=== PATIENT | female | born 1945 | race Caucasian/White ===

== ENCOUNTER 2016-12-11 19:58 | Inpatient (IN) | payer SELFPAY ==
[~2016-12-11] VITALS: Ht 162.6 cm; Wt 48.1 kg
[~2016-12-11 19:58] MED LIST: CALCIUM CHLORIDE 10%, 10ML SYR ONE; EPINEPHRINE SYRINGE 0.1 MG/ML, 10ML ONE
[2016-12-11] MEDS ORDERED: PLEASE ENTER HEIGHT AND WEIGHT MC SCH (21:30)
[2016-12-11] MEDS ORDERED: SODIUM CHLORIDE 0.9% 1,000ML IVBOLUS ONE ×3 (21:30→22:30)
[2016-12-11] MEDS ORDERED: PLEASE ENTER ALLERGIES MC SCH ×2 (21:30)
[2016-12-11 22:01] LABS: ASPARTATE AMINO TRANSFERASE 411 U/L (15-37); BLOOD UREA NITROGEN 94 mg/dL (7-18)
[2016-12-11] MEDS ORDERED: PIPERACILLIN/TAZO/PMX 3.375GM 50 ML ONE (22:16)
[2016-12-11 22:17] LABS: IS PT STATUS REG ER OR PRE ER? YES
[2016-12-11] MEDS ORDERED: VANCOMYCIN PER PHARMACY IV ONE (22:30)
[2016-12-11] MEDS ORDERED: VANCOMYCIN PMX 1GM/200ML 200 ML IV ONE (22:30)
[2016-12-11] MEDS ORDERED: PIPERACILLIN/TAZO/PMX 3.375GM 50 ML IVPB ONE (22:30)
[2016-12-11 22:38] LABS: HEMOGLOBIN 6.8 g/dL (11.7-16.4)
[2016-12-11 22:55] LABS: DIFF TOTAL CELLS COUNTED 100 CELL DIFF
[2016-12-11 22:58] LABS: HYPOCHROMIA 2+; LARGE PLATELETS 1+; MICROCYTOSIS 2+; OVALOCYTES 1+; POLYCHROMASIA 1+; TARGET CELLS 1+
[2016-12-11 22:59] LABS: VERIFY COUNTS? YES
[2016-12-12] VITALS (8 sets, daily range): BP systolic 74–103; BP diastolic 22–55
[2016-12-12 00:14] LABS: ICTOTEST NEGATIVE
[2016-12-12] MEDS ORDERED: PANTOPRAZOLE 80 MG in SODIUM CHLORIDE 0.9% 50 ML IV ONE (01:00)
[2016-12-12] MEDS ORDERED: SODIUM CHLORIDE 0.9% 1,000 ML IV ONE (01:03)
[2016-12-12] MEDS ORDERED: ONDANSETRON 2MG/ML, 2ML IVPush PRN (01:30)
[2016-12-12] MEDS: SODIUM CHLORIDE 0.9% 1,000 ML IV SCH ×3 (01:46→10:10)
[2016-12-12] MEDS ORDERED: ONDANSETRON 2MG/ML, 2ML IVP PRN (02:00)
[2016-12-12] MEDS ORDERED: BISACODYL 10 MG SUPP PR PRN (02:00)
[2016-12-12] MEDS ORDERED: DOCUSATE 100 MG CAPSULE PO PRN (02:00)
[2016-12-12] MEDS ORDERED: POLYETHYLENE GLYCOL 17 GM PACKET PO PRN (02:00)
[2016-12-12] MEDS ORDERED: LABETALOL 5MG/ML, 20ML IV PRN (02:00)
[2016-12-12] MEDS: PIPERACILLIN/TAZO/PMX 3.375GM 50 ML IV SCH ×3 (04:54→16:30)
[2016-12-12] MEDS: HEPARIN 5,000 UNITS/ML, 1ML SQ SCH ×3 (04:54→18:00)
[2016-12-12 04:57] LABS: IS PT STATUS REG ER OR PRE ER? NO
[2016-12-12] MEDS ORDERED: PANTOPRAZOLE 40 MG IV IVP SCH (07:30)
[2016-12-12] MEDS ORDERED: NOREPINEPHRINE 1 MG/ML, 4ML ONE (07:32)
[2016-12-12] MEDS ORDERED: LEVETIRACETAM 500 MG in SODIUM CHLORIDE 0.9% 100 ML IV SCH (08:00)
[2016-12-12] MEDS ORDERED: VANCOMYCIN PER PHARMACY MC PRN (08:00)
[2016-12-12] MEDS ORDERED: MIDAZOLAM HCL 25 MG in SODIUM CHLORIDE 0.9% 245 ML IV PRN (08:00)
[2016-12-12] MEDS ORDERED: NOREPINEPHRINE 4 MG in SODIUM CHLORIDE 0.9% 246 ML IV PRN (08:00)
[2016-12-12] MEDS ORDERED: LIDOCAINE-MPF 1%, 2ML ENDO PRN (09:00)
[2016-12-12] MEDS ORDERED: PHARMACOKINETIC MONITORING MC PRN (09:00)
[2016-12-12] MEDS ORDERED: PHARMACOKINETIC CONSULTATION MC ONE (09:00)
[2016-12-12] MEDS ORDERED: PROPOFOL 10 MG/ML, 20ML ONE (09:00)
[2016-12-12] MEDS ORDERED: ETOMIDATE 40 MG/20 ML ONE (09:00)
[2016-12-12] MEDS ORDERED: VASOPRESSIN 100 UNIT in SODIUM CHLORIDE 0.9% 495 ML IV PRN (09:00)
[2016-12-12] MEDS ORDERED: ACETAMINOPHEN 650 MG/20.3 ML UDC NG PRN (09:00)
[2016-12-12] MEDS ORDERED: PHARMACY MAY ADJ FOR RENAL FX MC SCH (09:00)
[2016-12-12 09:55] LABS: ABG COLLECTION SITE ARTERIAL LINE
[2016-12-12 10:22] LABS: BLOOD UREA NITROGEN 81 mg/dL (7-18)
[2016-12-12] MEDS: ALBUTEROL/IPRATROPIUM 2.5MG/0.5MG, 3 ML INLINE SCH ×3 (11:15→19:20)
[2016-12-12 11:33] LABS: HEMOGLOBIN 8.4 g/dL (11.7-16.4)
[2016-12-12 12:17] LABS: VERIFY COUNTS? YES
[2016-12-12 12:18] LABS: ANISOCYTOSIS 1+; HYPOCHROMIA 1+; MICROCYTOSIS 1+; OVALOCYTES 1+; POIKILOCYTOSIS 1+; POLYCHROMASIA 1+; SCHISTOCYTES 1+; SPHEROCYTES 1+; TARGET CELLS 1+
[2016-12-12 12:19] LABS: ECHINOCYTES 1+
[2016-12-12 12:21] LABS: LARGE PLATELETS 1+
[2016-12-12 12:23] LABS: DIFF TOTAL CELLS COUNTED 200 CELL DIFF
[2016-12-12 12:24] LABS: MONOS WITH VACUOLES 1+
[2016-12-12] MEDS ORDERED: DEXTROSE 50%, 50ML SYRINGE ONE (16:09)
[2016-12-12] MEDS ORDERED: DEXTROSE 50%, 50ML SYRINGE IVPush ONE (16:15)
[2016-12-12] MEDS ORDERED: DEXTROSE 10% 1,000 ML IV SCH (16:30)
[2016-12-12 16:40] LABS: BLOOD UREA NITROGEN 82 mg/dL (7-18)
[2016-12-12] MEDS: DEXTROSE 50%, 50ML SYRINGE IVPush PRN ×3 (16:45→18:50)
[2016-12-12] MEDS ORDERED: LACTULOSE 10 GM/15 ML UDC PO PRN (17:30)
[2016-12-12] MEDS ORDERED: CALCIUM GLUCONATE 9.2 MEQ in SODIUM CHLORIDE 0.9% 100 ML IV ONE (17:30)
[2016-12-12] MEDS ORDERED: SODIUM POLYSTYRENE SULFONATE ORAL SUSP PO ONE (17:30)
[2016-12-12] MEDS ORDERED: NOREPINEPHRINE 8 MG in SODIUM CHLORIDE 0.9% 242 ML IV PRN (20:00)
[2016-12-12] MEDS ORDERED: CODE BLUE RESPONSE XX ONE (20:30)
== END 2016-12-12 19:52 | disposition expired | DRG 871 ==
LOC: ED 21:43 → EDIP 12-12 01:03 → CCU 12-12 03:05
PROVIDERS: ADMIT Internal Medicine; ATTEND Internal Medicine
PROC: 30233N1 Transfusion of Nonautologous Red Blood Cells into Peripheral Vein, Percutaneous Approach (ICD-10-PCS; principal; 2016-12-12)
PROC: 5A1935Z Respiratory Ventilation, Less than 24 Consecutive Hours (ICD-10-PCS; 2016-12-12)
PROC: 0BH17EZ Insertion of Endotracheal Airway into Trachea, Via Natural or Artificial Opening (ICD-10-PCS; 2016-12-12)
PROC: 0T9B70Z Drainage of Bladder with Drainage Device, Via Natural or Artificial Opening (ICD-10-PCS; 2016-12-12)
DX: A41.9 Sepsis, unspecified organism (principal); R65.21 Severe sepsis with septic shock; K72.00 Acute and subacute hepatic failure without coma; I21.4 Non-ST elevation (NSTEMI) myocardial infarction; J18.9 Pneumonia, unspecified organism; D65 Disseminated intravascular coagulation [defibrination syndrome]; G93.41 Metabolic encephalopathy; J96.01 Acute respiratory failure with hypoxia; N17.0 Acute kidney failure with tubular necrosis; M62.82 Rhabdomyolysis; E87.1 Hypo-osmolality and hyponatremia; N39.0 Urinary tract infection, site not specified; D68.59 Other primary thrombophilia; E87.0 Hyperosmolality and hypernatremia; E87.5 Hyperkalemia; S92.42 Fracture of distal phalanx of great toe; X58.XXXA Exposure to other specified factors, initial encounter; Y93.89 Activity, other specified; Y92.89 Other specified places as the place of occurrence of the external cause; Y99.8 Other external cause status; B85.2 Pediculosis, unspecified; D50.0 Iron deficiency anemia secondary to blood loss (chronic); E86.0 Dehydration; E86.1 Hypovolemia
CPT/HCPCS: 36415; 36600; 51702; 70450; 71010; 80048; 80053; 81001; 82140; 82550; 82803; 82962; 83605; 83735; 84100; 84145; 84439; 84443; 84478; 84484; 85025; 85610; 86850; 86900; 86923; 87040; 87070; 87077; 87081; 87086; 87147; 87186; 87205; 92950; 94002; 94003; 94640; 96365; 96366; 96375; 99292; J0610; J1644; J1953; J2250; J2543; J2704; J3370; J7620; C9113; J7030; J7040; J7050; P9016